=== PATIENT | female | born 1950 | race Native Hawaiian/Other Pacific Islander ===

== ENCOUNTER 2018-12-20 12:40 | Outpatient (CLI) | payer MEDICARE | END 2018-12-20 12:41 | disposition home or self-care (01) | LOC: C.MAMMO 12:40 | DX: Z12.31 Encounter for screening mammogram for malignant neoplasm of breast (principal); M75.51 Bursitis of right shoulder ==

== ENCOUNTER 2019-01-05 10:56 | Emergency (ER) | payer MEDICARE | END 2019-01-05 14:25 | disposition home or self-care (01) | LOC: C.ER 10:56 ==

== ENCOUNTER 2019-02-13 06:33 | Day surgery (SDC) | payer MEDICARE ==
[2019-02-13 07:01] VITALS: BMI 52.9
[2019-02-13] MEDS ORDERED: Midazolam 2 MG/2 ML VIAL ONE (08:21)
--- NOTE | 2019-02-13 08:24 | CP.SDSHP ---
Same Day Surgery H & P - History Proposed Procedure: Colonoscopy Pre-Op Diagnosis: change in bowel habits, diverticulitis - Previous Medical/Surgical History Cardiac: Hypertension Neuro: Backaches Previous Surgical History: Detached retina OS - Allergies Allergies: Allergies No Known Allergies Allergy (Verified 01/05/19 11:03) - Current Medications Current Medications: See reconciliation sheet - Physical Exam General Appearance: WD WN female in NAD Vital Signs: Vital Signs 02/13/19 06:45 Temperature 97.1 F L Pulse Rate 68 Respiratory 19 Rate Blood Pressure 144/56 L O2 Sat by Pulse 100 Oximetry Mental Status: Alert & Oriented x3 Neuro: WNL Heart: WNL Lungs: WNL GI: WNL - {Optional Preform as Required} Abdomen: WNL - Impression Impression: Change in bowel habits, diverticulitis Pt. Evaluated Today:Candidate for Anesthesia & Procedure: Yes - Date & Time Date: 02/13/19 Time: 08:24 Short Stay Discharge - Short Stay Discharge Admitting Diagnosis/Reason for Visit: DIVERTICULOSIS Disposition: HOME/ ROUTINE
[2019-02-13] MEDS ORDERED: Lactated Ringer's 1,000 ML IV ONE (08:25)
[2019-02-13 09:10] VITALS: TEMP 98.9
[2019-02-13 09:38] VITALS: PULSE 69; RESP 12; O2SAT 100
[2019-02-13 11:25] VITALS: BP 124/69
== END 2019-02-13 11:23 | disposition home or self-care (01) ==
LOC: C.ENDO 06:33
PROVIDERS: ATTEND Internal Medicine Gastroenterology
DX: K57.30 Diverticulosis of large intestine without perforation or abscess without bleeding (principal); I10 Essential (primary) hypertension; K64.0 First degree hemorrhoids
CPT/HCPCS: 45378; J2250; J3010; J7120